=== PATIENT | male | born 1995 | race Caucasian/White ===

== ENCOUNTER 2018-06-06 22:56 | Emergency (ER) | payer OTHER ==
--- NOTE | 2018-06-06 23:09 | EDPHY ---
H & P Stated Complaint: L side "lump" near arm pit, nasal congestion, increasing discomfort Time Seen by Provider: 06/06/18 23:05 HPI/ROS: HPI: This is a 23-year-old male who presents with Chief Complaint: Left side "lump" near arm pit, nasal congestion, increasing discomfort Location: Left chest Quality: Lump Duration: Several years Signs and Symptoms: no fever, no nausea, no vomiting, no diarrhea, no urinary symptoms, no chest pain, no shortness of breath, no wheezing, no cough, no sore throat, no neck stiffness, no joint pain, no swollen glands, no ear pain, no rash Timing: Gradually worse Severity: Mild Context: Patient recently moved to the area from [place], [place] presents with several year history of a"lump" near his left armpit that has gradually increased in size over the last several days. He was told that he it was "some type of cyst in the past." He has experiences more discomfort with the increase in swelling. He has no primary care provider in the area. Denies any discharge, fevers, redness, warmth. Modifying Factors: None Comment: ROS: A comprehensive 10 system review of systems is otherwise negative aside from elements mentioned in the history of present illness. MEDICAL/SURGICAL/SOCIAL HISTORY: Medical history: Generally healthy. Does not take any regular medications. Surgical history: Denies Social history: Never smoked. Family history noncontributory. CONSTITUTIONAL: Extremely polite and cooperative young adult white male, awake and alert, no obvious distress HEENT: Atraumatic and normocephalic, PERRL, EOMI. Nares patent; no rhinorrhea; no nasal mucosal edema. Tympanic membranes clear. Oropharynx clear, no exudate and moist pink mucosa. Airway patent. No lymphadenopathy. No meningismus. Cardiovascular: Normal S1/S2, regular rate, regular rhythm, without murmur rub or gallop. PULMONARY/CHEST: Symmetrical and nontender. Clear to auscultation bilaterally. Good air movement. No accessory muscle usage. ABDOMEN: Soft, nondistended, nontender, no rebound, no guarding, no peritoneal signs, no masses or organomegaly. No CVAT. EXTREMITIES: 2/2 pulses, strength 5/5, no deformities, no clubbing, no cyanosis or edema. NEUROLOGICAL: no focal neuro deficits. GCS 15. SKIN: Warm and dry, 4 in x 4 in sebaceous cyst noted on the left anterior axillary chest near the axilla; no surrounding erythema. no rash. Good capillary refill. Source: Patient Exam Limitations: No limitations - Personal History Current Tetanus Diphtheria and Acellular Pertussis (TDAP): Yes - Medical/Surgical History Hx Asthma: No Hx Chronic Respiratory Disease: No Hx Diabetes: No Hx Cardiac Disease: No Hx Renal Disease: No Hx Cirrhosis: No Hx Alcoholism: No Hx HIV/AIDS: No Hx Splenectomy or Spleen Trauma: No Other PMH: denies - Social History Smoking Status: Never smoked Constitutional: Initial Vital Signs Temperature (C) 37.0 C 06/06/18 22:59 Heart Rate 120 H 06/06/18 22:59 Respiratory Rate 18 06/06/18 22:59 Blood Pressure 154/71 H 06/06/18 22:59 O2 Sat (%) 96 06/06/18 22:59 O2 Delivery Mode Room Air Allergies/Adverse Reactions: No Known Allergies Allergy (Unverified 06/06/18 22:59) Home Medications: Medication Instructions Recorded Cephalexin [Keflex (*)] 500 mg PO TID #21 cap 06/06/18 Medical Decision Making ED Course/Re-evaluation: Local anesthesia was provided with 1% lidocaine and 0.5% bupivacaine 6 mL. Patient clearly has a sebaceous cyst with no signs of abscess/cellulitis. No fluctuance to I and D. Placed on Keflex with referral to General surgery for removal. This patient was seen under the supervision of my secondary supervising physician. I evaluated care for this patient independently. Discussed this patient with Dr. Garrett. Differential Diagnosis: Differential diagnosis includes but is not limited to hydradenitis suppurativa, cellulitis, abscess. Departure - Departure Disposition: Home, Routine, Self-Care Clinical Impression: Sebaceous gland hyperplasia of chest Condition: Good Instructions: Dermal Cyst Excision (DC), Epidermal Inclusion Cysts (ED) Additional Instructions: Take Tylenol 650 mg every 4 hours and/or Ibuprofen 600 mg every 8 hours with food as needed for pain. Use Percocet every 6 hours as needed for severe/break through pain. Do not use Tylenol and Percocet concomitantly. Apply moist warm compresses for 30 minutes at a time; 2-3 times per day for the next 1-2 days. Follow up with General surgery in 5-7 days at which time they will evaluate and recommend with you if conservative management versus surgery excision is indicated. Referrals: Madelaine Hanson MD [Medical Doctor] - As per Instructions Prescriptions: Cephalexin [Keflex (*)] 500 mg PO TID #21 cap
[2018-06-06] MEDS ORDERED: OXYCODONE/APAP 5/325MG PREPACK#4 BTL TAKEHOME ONE (23:32)
[2018-06-06] MEDS ORDERED: CEPHALEXIN 500MG PREPACK#4 BTL TAKEHOME ONE (23:32)
[2018-06-06 23:59] VITALS: BP 132/75
== END 2018-06-06 23:59 | disposition home or self-care (01) ==
PROC: 0H9CXZZ Drainage of Left Upper Arm Skin, External Approach (ICD-10-PCS; principal; 2018-06-06)
DX: L02.412 Cutaneous abscess of left axilla (principal)